=== PATIENT | female | born 1970 | race African-American/Black ===

== ENCOUNTER 2021-05-23 17:29 | Emergency (ER) | payer SELFPAY ==
[2021-05-23 18:11] VITALS: BP 153/84; PULSE 103; RESP 24; TEMP 37.1; O2SAT 99
--- NOTE | 2021-05-23 21:29 | ED.SOB ---
HPI - SOB/Dyspnea General Chief Complaint: Shortness of Breath/Dyspnea Stated Complaint: sob/swelling Source: patient and RN notes reviewed Limitations: no limitations History of Present Illness HPI Narrative: The boost vaccinated patient, an obese non-smoker/exdrinker on minimal HTN meds, presents with ankle edema. Patient states she has a least 1/2-week worsening of 1 month history of intermittent edema of her legs associated with exertional shortness of breath. Her past medical history is remarkable for reformed alcoholic, Crohn's disease s/p right hemicolectomy; her last labs were in and revealed a hemoglobin 01/16 for which she was on iron that was never followed up or refilled. Reported that time she had noncontributory chest PE scan and other labs; Now no fever, cough, URI; loss of taste/smell, no chest pains [including precordial] , wheezing/sneezing, palpitatins, presyncope, shortness of breath at rest. Discussed possible causes [cardiac, metabolic, medications, etc. ], patient advised [facility]-- which she declines with family members Related Data Home Medications Medication Instructions Recorded Confirmed amlodipine 10 mg PO DAILY 05/23/21 05/23/21 eszopiclone 2 mg PO PRN 05/23/21 05/23/21 lisinopril 10 mg PO DAILY 05/23/21 05/23/21 Allergies Allergy/AdvReac Type Severity Reaction Status Date / Time No Known Allergies Allergy Verified 05/23/21 18:22 Review of Systems Review of Systems: General/Constitutional: No weight loss,fever Eyes: N0: Redness,discharge Ears/Nose/Throat: No: Epistaxis,ear discharge Respiratory: Denies: Hemoptysis Gastrointestinal: No Vomiting, Bleeding-rectal Skin: No Lumps, eruption Neurologic: No Focal Weakness,Sz Hematologic: Denies: Petechiae/Purpura Psychiatric: No: Suicida ideationl All Other Systems: Reviewed and Negative PMF Comments At time of signature, agree with nursing past medical, surgical, social and family history. There is no relevant family history pertinent to the presenting complaint Exam Narrative: General Appearance: Obese/well appearing, No distress EYE: PERRLA, Conjunctiva clear Ears: External ear normal Nose: Normal nose Mouth/Throat: Normal appearing, Normal lips Neck: Supple Respiratory: Airway patent, No respiratory distress, distant/decreased BS Cardiovascular: RRR Abdomen: Soft, Non-tender, No massess, No organomegaly (no rebound/ surgical signs), Hyperactive bowel sounds Musculoskeletal: Full ROM Skin: Warm, Dry, 1-2+ dependent edema Neurological: A&O x3, CN II-X intact Psychiatric: Normal mood, Normal affect Course Vital Signs Vital signs: Vital Signs Temperature 98.8 F 05/23/21 18:11 Pulse Rate 103 H 05/23/21 18:11 Respiratory Rate 24 H 05/23/21 18:11 Blood Pressure 153/84 H 05/23/21 18:11 Pulse Oximetry 99 05/23/21 18:11 Temperature 98.8 F 05/23/21 18:11 Pulse Rate 103 H 05/23/21 18:11 Respiratory Rate 24 H 05/23/21 18:11 Blood Pressure 153/84 H 05/23/21 18:11 Pulse Oximetry 99 05/23/21 18:11 Discharge Plan Discharge Clinical Impression: Dependent edema, History of anemia, History of alcohol use, History of hypertension, Hx of Crohn's disease Patient Disposition: Home, Self-Care Condition: Stable Instructions: Antibiotic Form, Edema (ED) Additional Instructions: You have declined same-day/hospital referral, so ensure you see your PMD and get blood and other tests . A water pill is provided for the swelling; you may consider decreasing your Norvasc/amlodipine in consultation with your PMD A refill of iron is provided-which may be broken a half if nausea occurs, or doubled if tolerated well Prescriptions: New ferrous sulfate 325 mg (65 mg iron) tablet 325 mg PO DAILY Qty: 20 RF: 3 hydrochlorothiazide 12.5 mg capsule 12.5 mg PO DAILY Qty: 20 RF: 3 No Action amlodipine 10 mg tablet 10 mg PO DAILY RF: 0 lisinopril 10 mg tabl
== END 2021-05-23 20:50 | disposition home or self-care (01) ==
PROVIDERS: Emergency Provider Emergency Medicine
DX: R60.9 Edema, unspecified (principal); D64.9 Anemia, unspecified; I10 Essential (primary) hypertension
CPT/HCPCS: 99213; G0463